=== PATIENT | male | born 1940 | race Caucasian/White ===

== ENCOUNTER → 2019-06-19 | Outpatient (CLI) | payer MEDICARE, OTHER ==
--- NOTE | 2019-06-19 12:19 | REP ---
TRANSRECTAL PROSTATE ULTRASOUND: Real-time sonographic evaluation of prostate performed. Prostate measures 4.0 x 2.8 x 4.9 cm for a total volume of 28.7 mL. Subject-specific PSA 5.7. Heterogeneous echotexture is seen with scattered echogenic calcifications. There is a somewhat nodular pattern, but no discrete mass is seen. Seminal vesicles are symmetrical and unremarkable. Electronically Signed by Garry Elias MD 06/19/2019 06:06 P
== END ==
LOC: M RAD 08:20
PROVIDERS: ATTEND Internal Medicine
DX: R97.20 Elevated prostate specific antigen [PSA] (principal)

== ENCOUNTER → 2019-06-29 | Outpatient (REF) | payer MEDICARE, OTHER | LOC: M SMT 17:32 | PROVIDERS: ATTEND Nurse Practitioner Family | DX: R97.20 Elevated prostate specific antigen [PSA] (principal) ==

== ENCOUNTER → 2019-07-07 | Outpatient (REF) | payer MEDICARE, OTHER ==
[2019-07-07 19:37] LABS: LYMPHOCYTES 2 % (16-44); MONOCYTES 3 % (0-5); NEUTROPHILS 95 % (28-66)
[2019-07-07 19:38] LABS: PLATELET ESTIMATE NORMAL (NORMAL)
== END ==
LOC: M LAB REF 16:38
PROVIDERS: ATTEND Internal Medicine
DX: D72.89 Other specified disorders of white blood cells (principal)

== ENCOUNTER → 2019-07-21 | Outpatient (REF) | payer MEDICARE, OTHER ==
[2019-07-21 14:11] LABS: APPEARANCE, URINE CLEAR (CLEAR); BACTERIA, URINE AUTO NEGATIVE (NEGATIVE); BILIRUBIN, URINE AUTO NEGATIVE (NEGATIVE); BLOOD, URINE BLOOD NEGATIVE (NEGATIVE); COLOR, URINE STRAW (YELLOW); GLUCOSE, URINE (UA) AUTO NEGATIVE (NEGATIVE); KETONE, URINE AUTO NEGATIVE (NEGATIVE); LEUKOCYTE ESTERASE, URINE AUTO NEGATIVE (NEGATIVE); MUCUS, URINE SMALL (NEGATIVE); NITRITE, URINE AUTO NEGATIVE (NEGATIVE); PROTEIN, URINE AUTO NEGATIVE (NEGATIVE); RBC, URINE AUTO 0 /HPF (0-3); SPECIFIC GRAVITY URINE AUTO 1.004 (1.002-1.035); SQUAMOUS EPITHELIAL CELL UR AU 0 /HPF (0-6); UROBILINOGEN, URINE AUTO 0.2 mg/dL (0.0-2.0); WBC, URINE AUTO 0 /HPF (0-3)
== END ==
LOC: M SMT 13:48
PROVIDERS: ATTEND Nurse Practitioner Family
DX: R35.1 Nocturia (principal)
CPT/HCPCS: 51798; 81001; 87086; G0463

== ENCOUNTER → 2019-07-25 | Outpatient (CLI) | payer MEDICARE, OTHER ==
--- NOTE | 2019-07-25 15:09 | REP ---
PET/CT: History: Diagnosing lymphoma. Comparisons: Comparison CT abdomen and pelvis July 13, 2019. TECHNIQUE: 64 minutes following the intravenous injection of a 6.80 mCi dose of F-18 FDG, three-dimensional PET scintigraphy is acquired from the skull base to the proximal thighs. Triplanar noncontrast CT scanning is acquired through the same anatomic range for attenuation correction, and image registration with scan parameters optimized to minimize radiation exposure to the patient. PET scintigraphy and CT datasets were fused and displayed on a workstation with multiplanar and projection display capability. PET/CT Findings: There is a small right pleural effusion. There is a very small amount of ascites in the pelvic reflections. Left colonic diverticulosis is seen. Vascular calcification is noted. On PET scintigraphy, there is numerous hypermetabolic uptake in multiple lymph nodes in the anterior neck, supraclavicular, left subclavian, left axillary, bilateral hilar and mediastinal, retrocrural, upper abdominal retroperitoneal, and right external iliac lymph node chains. There are also multiple nodular foci of mildly hypermetabolic uptake in the lung parenchyma bilaterally. There are two foci of hypermetabolic uptake in the liver and one small focus is seen in the spleen. The standard uptake values in the lymph adenopathy ranges from 6 to 7, up to 22.15. Hypermetabolic uptake appears to be most avid in the retroperitoneal and upper abdominal lymph nodes and in the right hilar region. The posterior mediastinal and upper abdominal adenopathy is fairly bulky as seen on CT. Impression: Extensive and fairly bulky hypermetabolic lymphadenopathy above and below the diaphragm as described above. There is some pulmonary parenchymal hypermetabolic uptake bilaterally. A right pleural effusion and mild ascites are noted. Hepatic and splenic foci of hypermetabolic uptake are also seen. Electronically Signed by Dyllan Roberto MD 07/25/2019 03:46 P
== END ==
LOC: M PLARAD 07:37
PROVIDERS: ATTEND Internal Medicine
DX: R91.8 Other nonspecific abnormal finding of lung field (principal)
CPT/HCPCS: 78815; A9552

== ENCOUNTER → 2019-07-27 | Outpatient (REF) | payer MEDICARE, OTHER ==
[2019-07-27 14:28] LABS: BASO % 0.1 % (0.0-1.0); HEMATOCRIT 29.9 % (42.0-52.0); HEMOGLOBIN 9.6 g/dl (13.5-17.5); LYMPH # 0.3 10^3/uL (1.5-5.0); LYMPH % 2.7 % (24.0-44.0); MEAN CORPUSCULAR HEMOGLOBIN 27.1 pg (27.0-33.0); MEAN CORPUSCULAR HGB CONC 32.1 g/dl (32.0-36.5); MEAN CORPUSCULAR VOLUME 84.5 fl (80.0-96.0); MONO # 0.4 10^3/uL (0.0-0.8); MONO % 3.6 % (0.0-5.0); NEUTROPHILS # 10.9 10^3/uL (1.5-8.5); PLATELET COUNT, AUTOMATED 510 10^3/uL (150-450); RED BLOOD COUNT 3.54 10^6/uL (4.30-6.10); WHITE BLOOD COUNT 11.8 10^3/uL (4.0-10.0)
== END ==
LOC: M LAB REF 14:06
PROVIDERS: ATTEND Internal Medicine
DX: D72.9 Disorder of white blood cells, unspecified (principal)